=== PATIENT | male | born 1975 | race Asian ===

== ENCOUNTER 2020-11-06 20:17 | Emergency (ER) | payer OTHER ==
[~2020-11-06] VITALS: Ht 167.6 cm; Wt 68.0 kg
[2020-11-06 20:30] VITALS: BP_SYST 113; BP_SYST 121; BP_DIAS 64; BP_DIAS 76
--- NOTE | 2020-11-06 20:30 | NUR ---
TO [facility]
--- NOTE | 2020-11-06 20:50 | NUR ---
SEEN AND EXAMINED BY URMILA WITH ORDERS, CARRIED OUT
--- NOTE | 2020-11-06 21:00 | NUR ---
Asha orozco in [facility] - 11/06/20 at 2122 by FAISAL MEDICATED PER [facility] ORDER, TOLERATED WELL.
--- NOTE | 2020-11-06 21:35 | NUR ---
RESULT BACK AND NOTED BY ERMD AND FOR D/C
[2020-11-06 21:52] VITALS: BP 113/76
--- NOTE | 2020-11-06 21:52 | NUR ---
Patient discharged with v/s stable. Written and verbal after care instructions given and explained. Patient alert, oriented and verbalized understanding of instructions. Ambulatory with steady gait. All questions addressed prior to discharge. ID band removed. Patient advised to follow up with PMD. Rx of GUAIATUSSIN,NAPROSYN given. Patient educated on indication of medication including possible reaction and side effects. Opportunity to ask questions provided and answered.
== END 2020-11-06 21:52 | disposition home or self-care (01) ==
LOC: MED 20:17
DX: U07.1 COVID-19 (principal); J20.9 Acute bronchitis, unspecified
CPT/HCPCS: 71045; 99283

== ENCOUNTER 2020-11-10 10:16 | Emergency (ER) | payer OTHER ==
[~2020-11-10] VITALS: Ht 170.2 cm; Wt 71.2 kg
[2020-11-10 10:19] VITALS: BP 119/58
--- NOTE | 2020-11-10 10:30 | NUR ---
C/O FEVER/ COUGH X12 DAYS. COVID + FOR 10 DAYS. PATIENT STATES HE FEELS SLIGHTLY SOB. COUGH IS PRODUCTIVE AND IS CAUSING SOB. NO ACUTE DISTRESS NOTED AT THIS TIME. DENIES ANY N/V/D. DENIES ANY CHEST PAIN NO PMH NKDA
[2020-11-10] MEDS ORDERED: COMMUNICATION ORDER MC ONE (10:35)
[2020-11-10] MEDS ORDERED: cefTRIAXone 1,000 MG in LIDOCAINE MPF 1% 2.1 ML IM ONE (11:40)
[2020-11-10] MEDS ORDERED: DEXAMETHASONE 10 MG/ML VIAL IM ONE (11:40)
[2020-11-10] MEDS ORDERED: AZITHROMYCIN 250 MG TAB PO ONE (11:40)
[2020-11-10] MEDS ORDERED: cefTRIAXone 1,000 MG VIAL ONE (11:53)
[2020-11-10] MEDS ORDERED: bamlanivimab 700 MG (1 VIAL) in NACL 0.9% @ 270 MLS/HR(270ml) IV SCH (12:00)
[2020-11-10] MEDS ORDERED: DEXAMETHASONE 10 MG/ML VIAL IVP ONE (12:10)
[2020-11-10] MEDS ORDERED: AZITHROMYCIN 1,000 MG in DEXTROSE 5% 500 ML IV ONE (12:10)
[2020-11-10] MEDS ORDERED: AZITHROMYCIN 500 MG in DEXTROSE 5% 250 ML IV ONE (12:15)
[2020-11-10] MEDS ORDERED: AZITHROMYCIN 500 MG INJ VIAL IV ONE (12:25)
[2020-11-10 15:00] VITALS: BP 120/62
--- NOTE | 2020-11-10 15:00 | NUR ---
Patient discharged with v/s stable. Written and verbal after care instructions given and explained. Patient alert, oriented and verbalized understanding of instructions. Ambulatory with steady gait. All questions addressed prior to discharge. ID band removed. Patient advised to follow up with PMD. Rx of PROMETHAZINE, AZITHROMYCIN, HYDROXYCHLOROQUINE, PREDNISONE, VITAMIN D, IVERMECTIN given. Patient educated on indication of medication including possible reaction and side effects. Opportunity to ask questions provided and answered.
== END 2020-11-10 15:00 | disposition home or self-care (01) ==
LOC: MED 10:16
DX: U07.1 COVID-19 (principal); J12.82 Pneumonia due to coronavirus disease 2019
CPT/HCPCS: 36600; 71045; 82803; 96365; 96366; 96367; 96372; 96375; 99284; J0456; J0696; J1100; J7030; J7060; M0239